=== PATIENT | male | born 1960 | race Caucasian/White ===

== ENCOUNTER 2016-12-24 13:10 | Day surgery (SDC) | payer BC ==
[~2016-12-24] VITALS: Ht 175.3 cm; Wt 84.1 kg
[2016-12-24] MEDS ORDERED: SIMVASTATIN (14:03)
[2016-12-24 14:05] VITALS: Ht 175.3 cm; Wt 84.1 kg
[2016-12-24 14:21] VITALS: BP 125/80; PULSE 77; RESP 18
[2016-12-24] MEDS ORDERED: PROPOFOL 20 ML ONE (15:27)
[2016-12-24 16:21] VITALS: BP 111/75; RESP 20
--- NOTE | 2016-12-25 10:25 | GILP ---
DATE OF PROCEDURE: 12/24/2016 NAME OF PROCEDURE: Colonoscopy to cecum. SURGEON: Monica Dawson MD PREOPERATIVE DIAGNOSIS(ES) POSTOPERATIVE DIAGNOSIS(ES) BRIEF HISTORY AND INDICATIONS: The patient here for colorectal cancer screening. PREMEDICATION: Monitored anesthesia care by anesthesiologist. INSTRUMENT USED: Olympus colonoscope. PREPARATION: Adequate. TECHNIQUE: After informed consent, with the patient/relatives understanding the procedure, its indic ations potential risks and complications, including but not limited to: allergic reaction, bleeding, perforation, infection, missed lesions and after all pertinent questions were answered to the patie nt's satisfaction, the patient/relatives signed the witnessed informed consent. Following this, premedication was administered slowly IV push by under careful cardiovascular and re spiratory monitoring with pulse oximetry, automatic blood pressure and news editor. Once the sedativ e effect was achieved, the patient was placed in the left lateral decubitus position, digital rectal examination was performed. The colonoscope was then introduced and advanced under visual control th roughout all segments of the colon including: the rectum, sigmoid, descending colon, splenic flexure , transverse colon, hepatic flexure, ascending colon and finally reaching the cecum which was clearl y identified by transillumination, finger indentation and the ileocecal valve. Careful examination o f the mucosa of the lower gastrointestinal tract both on insertion as well as withdrawal of the inst rument disclosed the following findings: Rectal Examination: No evidence of perirectal disease, no masses. Colonic Mucosa: The colonic mucosa is entirely unremarkable. The ileocecal valve was clearly identi fied and appears unremarkable. The instrument was withdrawn reexamining the mucosa in detail. No a dditional abnormalities were noted with the exception of moderate sized internal hemorrhoids. The instrument was then withdrawn, the patient tolerated the procedure well and was transferred out of the [facility]oscopy Suite awake and in good condition to continue recovery under observation. IMPRESSION: 1. Normal colonic mucosa to cecum 2. Moderate size internal hemorrhoids. RECOMMENDATION: The patient will be followed up as an outpatient. Annual Hemoccult stool testing i s recommended. Screening colonoscopy in 10 years is recommended as well. Dictated By: MONICA DAWSON MS/BECKY Conf#: [id number] DID#: [id number] CC: Monica Dawson;*EndCC*
== END 2016-12-24 16:07 | disposition home or self-care (01) ==
LOC: EDSEX 13:10 → GIL 13:10
PROVIDERS: ATTEND Internal Medicine Gastroenterology
DX: Z12.11 Encounter for screening for malignant neoplasm of colon (principal); K64.8 Other hemorrhoids
CPT/HCPCS: 45378; Z7610